=== PATIENT | female | born 1940 | race Caucasian/White ===

== ENCOUNTER 2016-08-20 13:51 | Observation (INO) | payer OTHER ==
--- NOTE | ~2016-08-20 | HP ---
History And Physical [place] [id number] [facility] [place]. [address] NAME: ERI COTO : 39 STATUS : ADM Tom PAT#: [id number] AGE: 75 ADM/REG DATE : 08/20/16 MR#: [id number] REPORT SERV DATE: 08/20/16 DICTATED BY: PAULA PAVON DATE: 08/20/16 REPORT STATUS : Draft TRANSCRIBED BY: BELLA DATE: 08/20/16 DATE OF ADMISSION: 08/20/2016 CHIEF COMPLAINT: Generalized weakness and feeling unwell. HISTORY OF PRESENT ILLNESS: Ms. Coto is a 75-year-old female with a history of hypertension who presented to the hospital with multiple nonspecific complaints. The patient states that for the past one to two weeks she has not been feeling herself, reports increasing weakness and some decrease in p.o. intake. The patient states that the last week she had an episode where all of a sudden she had a right visual field blindness, states that she was unable to see in half of her right eye for quite some time, likely over 30 minutes. States the symptoms, however, subsequently resolved. She states that since that episode she has been feeling on well, decided to go see her primary care doctor today. States that upon discussions with her primary care doctor, they said lab work was going to be obtained and that it would take about two weeks for laboratory results. The patient states that she felt that something was wrong and needed immediate answers, so she decided to present to the emergency room. Upon presentation to the emergency room, preliminary workup included a CBC and a CMP, which both came back normal. However, give her reported episode of right visual field defect about one week ago, the patient was admitted for further workup. At the time of my evaluation of the patient, she corroborated the above story. She says that sometimes she feels lightheaded and dizzy, especially upon assuming a standing position. States that generally she has felt weak and not herself, but she denies any sick contacts, no nausea, no vomiting, no constipation, no fevers, no chills. REVIEW OF SYSTEMS: A 12-point review of system was performed. All systems were negative except as noted in the HPI. PAST MEDICAL HISTORY: Significant for hypertension. FAMILY HISTORY: Noncontributory. SOCIAL HISTORY: The patient currently lives at home with . She denies any history of tobacco use, any alcohol use, or illicit drug use. MEDICATIONS: The patient is not on any prescribed medication, but on vitamin supplements. PHYSICAL EXAMINATION: VITAL SIGNS: Blood pressure on presentation 124/68, pulse of 77, respiration 19, O2 saturation 100% on room air. GENERAL: The patient lying in bed, in no acute distress. Speaking in full sentences. Face show features symmetric with no drooling or asymmetry noted. HEENT: Normocephalic and atraumatic. Extraocular motors intact. Pupils round and reactive to light and accommodation. Symmetric facial features. NECK: Trachea midline and symmetric. No thyromegaly present. No lymphadenopathy noted. CHEST: Nontender to palpation. History And Physical [address] [address] NAME: ERI COTO : 39 STATUS : ADM Tom PAT#: [id number] AGE: 75 ADM/REG DATE : 08/20/16 MR#: [id number] REPORT SERV DATE: 08/20/16 DICTATED BY: PAULA PAVON DATE: 08/20/16 REPORT STATUS : Draft TRANSCRIBED BY: BELLA DATE: 08/20/16 CARDIOVASCULAR: Regular rate and rhythm. S1, S2. No murmurs, rubs, or gallops. LUNGS: Clear to auscultation bilaterally. ABDOMEN: Positive bowel sounds. Nontender. Nondistended. EXTREMITIES: No cyanosis, no clubbing, no edema. NEUROLOGIC: Alert and oriented x3. No focal deficits appreciated. Strength, upper and lower extremities strength 5/5 with no focal deficits. LABORATORY DATA: WBC 8.2, hemoglobin 14.0, hematocrit 41.1, platelets 225. Sodium 144, potassium 3.7, chloride 109, bicarb 31, BUN 17, creatinine 0.92, glucose 98. IMAGING: Brain CT without contrast, impression: Evidence for a moderate amount of old deep white matter ischemic changes. It is similar to the study in 08/2015. Study was performed at 1519 hours. ASSESSMENT/PLAN: 1. Presumptive transient ischemic attack. The patient's symptomatology is not consistent with transient ischemic attack; however, she dose report an episode of, what appears to be, a right-sided visual field defect. However, history obtained from the patient, no evidence of weakness, no slurred speech, no drooling, no extremity weakness. Her ABCD2 score is 2; however, given her nonspecific complaints and concern of family members who are at bedside, we will admit the patient for transient ischemic attack workup given that the patient has a history of an ischemic event. Plan: We will order MRA neck, order TTE, start the patient on aspirin and atorvastatin. 2. Hypertension, uncontrolled. On presentation blood pressure was normal; however, on monitor the patient has had several blood pressure elevations. Plan: We will allow permissive hypertension at this point and monitor. 3. History of cerebrovascular accident. Place the patient on aspirin and atorvastatin. ISMAEL/MODL Paula Pavon MD / [id number] CC: MD Tomás Lagunas MD
--- NOTE | ~2016-08-20 | DS ---
Discharge Summary [facility] [address] [facility] [place]. [address] NAME: ERI COTO : 39 STATUS : ADM Tom PAT#: [id number] AGE: 75 ADM/REG DATE : 08/20/16 MR#: [id number] REPORT SERV DATE: 08/22/16 DICTATED BY: PAULA PAVON SAMUEL DATE: 08/22/16 REPORT STATUS : Draft TRANSCRIBED BY: MODL DATE: 08/22/16 ADMISSION DATE: 08/20/2016 DISCHARGE DATE: The patient is a 75-year-old female with a history of hypertension, who presented to the hospital with multiple nonspecific complaints, was admitted due to concern of a TIA for observation. For further details please refer to H and P dictated by mi on 08/20/2016. HOSPITAL COURSE: Upon presentation to the hospital, the patient was admitted on the Hospitalist Service for TIA workup, although her ABCD2 score was 2 suggesting an outpatient workup; however, given the patient's concern and although multiple complaints of the patient a decision was made to admit the patient for observation. During her hospitalization the patient has had several tests including MRI of the head without contrast, MRA of the neck, exercise stress test, and echocardiogram, all tests have come back within normal limits. Her vitals have remained stable. Her electrolytes were within normal limits. Given conclusion of workup, given her hemodynamic stability the patient will subsequently be discharged. Today plan has been discussed with the patient, who voices understanding and is agreeable with this plan. However, her MRI did note findings consistent with an old stroke, given this the patient will be started on aspirin and atorvastatin. Plan has been discussed with the patient, who voices understanding and is agreeable with this plan. DISCHARGE DIAGNOSES: 1. Transient ischemic attack. 2. Exertional dyspnea. 3. Hypertension. DISCHARGE MEDICATIONS: 1. Aspirin 81 mg p.o. daily. 2. Atorvastatin 80 mg p.o. daily. DISCHARGE PHYSICAL EXAMINATION: VITAL SIGNS: Blood pressure 139/62 with a pulse of 70, respirations 20, and O2 saturation 99% on room air. GENERAL: The patient lying in bed, in no acute distress. Appears stated age. HEENT: Normocephalic and atraumatic. Extraocular motors intact. Moist oral mucosa. NECK: Trachea midline and symmetric. No JVD noted. No thyromegaly present. No lymphadenopathy palpated. CHEST: Nontender to palpation. No scars noted. CARDIOVASCULAR: Regular rate and rhythm. S1, S2. No murmurs, rubs, or gallops. LUNGS: Clear to auscultation bilaterally. ABDOMEN: Positive bowel sounds. Nontender. Nondistended. No masses noted. EXTREMITIES: No cyanosis, no clubbing, no edema. NEUROLOGIC: Alert and oriented x3. No focal deficits appreciated. DISPOSITION: The patient will be discharged to home to follow with primary care physician. ACTIVITY: As tolerated. Discharge Summary [address] [address] NAME: ERI COTO : 39 STATUS : ADM Tom PAT#: [id number] AGE: 75 ADM/REG DATE : 08/20/16 MR#: [id number] REPORT SERV DATE: 08/22/16 DICTATED BY: PAULA PAVON DATE: 08/22/16 REPORT STATUS : Draft TRANSCRIBED BY: BELLA DATE: 08/22/16 DIET: Regular. Greater than 30 minutes were spent providing counseling, dictation of note, medication reconciliation, writing prescription. DICTATED BY: MD ISMAEL Lagunas/BELLA Paula Pavon MD / [id number] CC: MD Tomás Lagunas MD
[~2016-08-20 13:51] MED LIST: COQ-1010 MG PO; ESTER-C PO; KYOLIC GARLIC PO; METANX PO; METHYLCOBALAMINE PO; MULTIVIT/MIN PO; PREVAGEN PO; REFRES1 OPH; SALMON OIL PO; TUMERIC PO; VIBRATAB100 MG PO; VISION ESSENTIALS PO; VIT C/RHIPS/ PO; VITAMIN D31000 UNIT PO; [UNRECOGNIZED DRUG - OTHER] PO; [UNRECOGNIZED DRUG - OTHER] PO; [UNRECOGNIZED DRUG - OTHER] PO; [UNRECOGNIZED DRUG - REMARK] PO
[2016-08-20 15:15] LABS: BASOPHILS 0.2 %; BASOPHILS ABSOLUTE 0.02 10/3/uL (0.0-0.16); EOSINOPHILS 1.1 %; EOSINOPHILS ABSOLUTE 0.09 10/3/uL (0.0-0.53); HEMATOCRIT 41.1 % (36.0-48.0); IMMATURE GRANULOCYTES 0.1 %; IMMATURE GRANULOCYTES ABSOLUTE 0.01 10/3/uL (0.0-0.11); LYMPHOCYTES 41.8 %; LYMPHOCYTES ABSOLUTE 3.42 10/3/uL (0.67-4.30); MEAN CORPUS HGB CONC 34.1 g/dL (32.0-36.0); MEAN CORPUSCULAR HEMOGLOB 30.2 pg (26.0-34.0); MEAN CORPUSCULAR VOLUME 88.6 fL (80-100); MEAN PLATELET VOLUME 10.2 fL (9.2-13.0); MONOCYTES 4.5 %; MONOCYTES ABSOLUTE 0.37 10/3/uL (0.21-1.20); NEUTROPHILS 52.3 %; NEUTROPHILS ABSOLUTE 4.27 10/3/uL (2.02-8.40); RBC DISTRIBUTION WIDTH 13.2 % (12.0-16.0); RED CELL COUNT 4.64 10/6/uL (4.0-5.6)
[2016-08-20 15:16] LABS: ER CBC TAT 0 Hrs 05 Mins; MANUAL DIFF NO %; PLATELET COUNT 225 10/3/uL (150-400); WHITE BLOOD CELLS 8.2 10/3/uL (4.5-10.5)
[2016-08-20 15:23] LABS: PARTIAL THROMBO TIME 25.8 SEC (22.5-37.2); PROTIME (NOT ORD) 13.3 SEC (12.0-14.5)
[2016-08-20 15:33] LABS: ALKALINE PHOSPHATASE 75 U/L (45-117); CHLORIDE, SERUM 109 MMOL/L (96-112); CO2 (CARBON DIOXIDE) 31 MMOL/L (24-34); CREATININE 0.92 MG/DL (0.55-1.02); GFR AFRICAN AMERICAN 70 ML/MIN (>=60); GFR NON AFRICAN AMERICAN 60 ML/MIN (>=60); GLUCOSE, SERUM 98 MG/DL (60-99); POTASSIUM, SERUM 3.7 MMOL/L (3.5-5.3); SGOT(AST) 16 U/L (5-40); SGPT(ALT) 23 U/L (5-65); SODIUM, SERUM 144 MMOL/L (135-148); TOTAL PROTEIN 6.9 G/DL (6.0-8.5); TROPONIN I <0.02 NG/ML (<0.05)
[2016-08-20 15:35] LABS: A/G RATIO 1.2 (0.7-1.9); ALBUMIN 3.7 G/DL (3.5-5.0); BUN (BLOOD UREA NITROGEN) 17 MG/DL (6-23); CALCIUM, SERUM 9.5 MG/DL (8.5-10.4); GLOBULIN 3.2 G/DL (2.5-4.1); TOTAL BILIRUBIN 0.4 MG/DL (0-1.2)
[2016-08-20] MEDS ORDERED: TRI-IODINE PO (16:28)
[2016-08-20] MEDS ORDERED: CELERY SEED PO (16:28)
[2016-08-20] MEDS ORDERED: VITC500 PO (16:30)
[2016-08-20] MEDS ORDERED: VIT D PO (16:30)
[2016-08-20] MEDS ORDERED: VITAMIN B-122500 MCG SL (16:30)
[2016-08-20] MEDS ORDERED: CALCIUM PO (16:30)
[2016-08-20] MEDS ORDERED: SUP PO (16:30)
[2016-08-21 04:32] LABS: BASOPHILS 0.1 %; BASOPHILS ABSOLUTE 0.01 10/3/uL (0.0-0.16); EOSINOPHILS 3.5 %; EOSINOPHILS ABSOLUTE 0.26 10/3/uL (0.0-0.53); HEMATOCRIT 38.8 % (36.0-48.0); HEMOGLOBIN 13.2 g/dL (12.0-16.0); IMMATURE GRANULOCYTES 0.1 %; IMMATURE GRANULOCYTES ABSOLUTE 0.01 10/3/uL (0.0-0.11); LYMPHOCYTES 47.3 %; LYMPHOCYTES ABSOLUTE 3.54 10/3/uL (0.67-4.30); MEAN CORPUSCULAR HEMOGLOB 30.5 pg (26.0-34.0); MEAN CORPUSCULAR VOLUME 89.6 fL (80-100); MEAN PLATELET VOLUME 10.5 fL (9.2-13.0); MONOCYTES 5.9 %; MONOCYTES ABSOLUTE 0.44 10/3/uL (0.21-1.20); NEUTROPHILS 43.1 %; NEUTROPHILS ABSOLUTE 3.23 10/3/uL (2.02-8.40); PLATELET COUNT 200 10/3/uL (150-400); RBC DISTRIBUTION WIDTH 12.9 % (12.0-16.0); RED CELL COUNT 4.33 10/6/uL (4.0-5.6); WHITE BLOOD CELLS 7.5 10/3/uL (4.5-10.5)
[2016-08-21 04:38] LABS: MANUAL DIFF NO %
[2016-08-21 04:41] LABS: A/G RATIO 1.2 (0.7-1.9); ALBUMIN 3.1 G/DL (3.5-5.0); ALKALINE PHOSPHATASE 66 U/L (45-117); BUN (BLOOD UREA NITROGEN) 19 MG/DL (6-23); CHLORIDE, SERUM 112 MMOL/L (96-112); CHOL/HDL RATIO(NOT ORDER) 3.2 (0-5); CHOLESTEROL 176 MG/DL (< 200); CO2 (CARBON DIOXIDE) 28 MMOL/L (24-34); GFR AFRICAN AMERICAN 98 ML/MIN (>=60); GFR NON AFRICAN AMERICAN 84 ML/MIN (>=60); GLOBULIN 2.6 G/DL (2.5-4.1); GLUCOSE, SERUM 82 MG/DL (60-99); HDL CHOLESTEROL 55 MG/DL (> 49); LDL CHOLESTEROL 104 MG/DL (< 130); NON-HDL CHOLESTEROL 121 MG/DL (< 160); POTASSIUM, SERUM 3.7 MMOL/L (3.5-5.3); SGOT(AST) 14 U/L (5-40); SGPT(ALT) 20 U/L (5-65); SODIUM, SERUM 145 MMOL/L (135-148); TOTAL BILIRUBIN 0.3 MG/DL (0-1.2); TOTAL PROTEIN 5.7 G/DL (6.0-8.5); TRIGLYCERIDE 87 MG/DL (< 150)
[2016-08-21 04:43] LABS: CALCIUM, SERUM 8.4 MG/DL (8.5-10.4)
[2016-08-22 05:09] LABS: BASOPHILS 0.3 %; BASOPHILS ABSOLUTE 0.02 10/3/uL (0.0-0.16); EOSINOPHILS 2.5 %; EOSINOPHILS ABSOLUTE 0.17 10/3/uL (0.0-0.53); HEMATOCRIT 38.7 % (36.0-48.0); IMMATURE GRANULOCYTES 0.1 %; IMMATURE GRANULOCYTES ABSOLUTE 0.01 10/3/uL (0.0-0.11); LYMPHOCYTES 48.5 %; LYMPHOCYTES ABSOLUTE 3.24 10/3/uL (0.67-4.30); MEAN CORPUS HGB CONC 33.6 g/dL (32.0-36.0); MEAN CORPUSCULAR HEMOGLOB 30.2 pg (26.0-34.0); MEAN CORPUSCULAR VOLUME 89.8 fL (80-100); MEAN PLATELET VOLUME 10.5 fL (9.2-13.0); MONOCYTES 6.3 %; MONOCYTES ABSOLUTE 0.42 10/3/uL (0.21-1.20); NEUTROPHILS 42.3 %; NEUTROPHILS ABSOLUTE 2.82 10/3/uL (2.02-8.40); PLATELET COUNT 212 10/3/uL (150-400); RBC DISTRIBUTION WIDTH 12.8 % (12.0-16.0); RED CELL COUNT 4.31 10/6/uL (4.0-5.6); WHITE BLOOD CELLS 6.7 10/3/uL (4.5-10.5)
[2016-08-22 05:11] LABS: MANUAL DIFF NO %
[2016-08-22 05:31] LABS: A/G RATIO 1.2 (0.7-1.9); ALBUMIN 3.2 G/DL (3.5-5.0); ALKALINE PHOSPHATASE 67 U/L (45-117); BUN (BLOOD UREA NITROGEN) 22 MG/DL (6-23); CALCIUM, SERUM 8.5 MG/DL (8.5-10.4); CHLORIDE, SERUM 109 MMOL/L (96-112); CO2 (CARBON DIOXIDE) 27 MMOL/L (24-34); GFR AFRICAN AMERICAN 72 ML/MIN (>=60); GFR NON AFRICAN AMERICAN 62 ML/MIN (>=60); GLOBULIN 2.6 G/DL (2.5-4.1); GLUCOSE, SERUM 98 MG/DL (60-99); POTASSIUM, SERUM 3.6 MMOL/L (3.5-5.3); SGOT(AST) 16 U/L (5-40); SGPT(ALT) 20 U/L (5-65); SODIUM, SERUM 143 MMOL/L (135-148); TOTAL PROTEIN 5.8 G/DL (6.0-8.5)
[2016-08-22 05:32] LABS: TOTAL BILIRUBIN 1.2 MG/DL (0-1.2)
[2016-08-22] MEDS ORDERED: LIPITOR80 MG PO (08:54)
[2016-08-22] MEDS ORDERED: ASAB PO (08:54)
== END 2016-08-22 11:13 | disposition home or self-care (01) ==
LOC: ER 13:51 → CDU1 18:57
PROVIDERS: Hospitalist; Nurse Practitioner
DX: G45.9 Transient cerebral ischemic attack, unspecified (principal); I10 Essential (primary) hypertension; Z79.82 Long term (current) use of aspirin; Z79.899 Other long term (current) drug therapy; Z86.73 Personal history of transient ischemic attack (TIA), and cerebral infarction without residual deficits; Z88.5 Allergy status to narcotic agent; Z90.89 Acquired absence of other organs
CPT/HCPCS: 70450; 70548; 71010; 80053; 80061; 84484; 85025; 85610; 85652; 85730; 93005; 93017; 93306; 99285; A9270-GY; A9577; G0378